=== PATIENT | female | born 1955 | race African-American/Black ===

== ENCOUNTER 2018-08-30 12:53 | Emergency (ER) | payer SELFPAY ==
[~2018-08-30] VITALS: Ht 167.6 cm; Wt 68.0 kg
[2018-08-30] MEDS ORDERED: BACITRACIN ZINC OINT UDPKT TOP ONE (19:00)
[2018-08-30] MEDS ORDERED: LIDOCAINE HCL 2% JELLY 5ML TOP ONE (19:00)
[2018-08-30] MEDS ORDERED: TETANUS, DIPHTHERIA, PERTUSSIS VAC/PF 0.5ML (>7YR OLD) IM ONE (19:00)
[2018-08-30] MEDS ORDERED: HYDROCODONE/ACETAMINOPHEN 5/325MG TABLET PO ONE (19:00)
[2018-08-30] MEDS ORDERED: AMOXICILLIN/POTASSIUM CLAVULANATE 875/125MG TAB PO ONE (19:00)
[2018-08-30 21:11] VITALS: BP 147/81
== END 2018-08-30 21:11 | disposition home or self-care (01) ==
LOC: ER 12:53
DX: S61.411A Laceration without foreign body of right hand, initial encounter (principal); F17.200 Nicotine dependence, unspecified, uncomplicated; F12.10 Cannabis abuse, uncomplicated; Z87.81 Personal history of (healed) traumatic fracture; W26.8XXA Contact with other sharp object(s), not elsewhere classified, initial encounter; Y93.89 Activity, other specified; Y92.89 Other specified places as the place of occurrence of the external cause; Y99.8 Other external cause status
CPT/HCPCS: 12002; 73130; 90471; 90715; 99284